=== PATIENT | male | born 1975 | race Caucasian/White ===

== ENCOUNTER 2024-01-16 21:14 | Emergency (ER) | payer BC | END 2024-01-16 22:56 | disposition home or self-care (01) | LOC: MW.ED 21:14 | DX: R42 Dizziness and giddiness (principal); I12.9 Hypertensive chronic kidney disease with stage 1 through stage 4 chronic kidney disease, or unspecified chronic kidney disease; N18.9 Chronic kidney disease, unspecified; Z75.8 Other problems related to medical facilities and other health care; Z79.899 Other long term (current) drug therapy | CPT/HCPCS: 93005; 99284 ==